=== PATIENT | female | born 1985 | race Caucasian/White ===

== ENCOUNTER 2018-07-14 07:13 | Outpatient (CLI) | payer OTHER, SELFPAY ==
[2018-07-14 08:11] LABS: HCT 39.2 % (36.0-46.0); HGB 12.9 g/dL (12.0-15.5); Mean Corp. HGB Concentration 32.9 g/dL (32.0-36.0); Mean Corpuscular Hemoglobin 29.5 pg (27.0-33.0); Mean Corpuscular Volume 89.5 fL (80-95); Mean Platelet Volume 10.7 fL (8.0-11.0); Platelet Count 293 x1000/uL (130-400); RBC 4.38 m/cumm (4.00-5.20); RBC Distribution Width 15.5 % (11.7-14.6); White Blood Cell Count 6.39 k/cumm (4.4-10.8)
== END 2018-07-14 07:33 ==
PROVIDERS: PCP Nurse Practitioner Family; Visit Provider Nurse Practitioner Family
DX: D64.9 Anemia, unspecified (principal)
CPT/HCPCS: 36415; 85027

== ENCOUNTER 2020-04-08 07:57 | Outpatient (CLI) | payer OTHER, SELFPAY | END 2020-04-08 08:17 | PROVIDERS: PCP Nurse Practitioner Family; Visit Provider Family Medicine | DX: Z11.59 Encounter for screening for other viral diseases (principal); Z71.84 Encounter for health counseling related to travel | CPT/HCPCS: U0003 ==

== ENCOUNTER 2020-04-12 11:40 | Outpatient (CLI) | payer OTHER, SELFPAY ==
[2020-04-13 11:52] LABS: COVID-19 RT-PCR UVMMC Result Negative (Negative)
== END 2020-04-12 12:00 ==
PROVIDERS: PCP Nurse Practitioner Family; Visit Provider Family Medicine
DX: Z11.59 Encounter for screening for other viral diseases (principal)
CPT/HCPCS: U0003

== ENCOUNTER 2020-04-25 16:22 | Outpatient (REF) | payer OTHER, SELFPAY | END 2020-04-25 16:42 | LOC: LBN 16:22 | PROVIDERS: PCP Nurse Practitioner Family; Visit Provider Nurse Practitioner Adult Health | DX: R30.0 Dysuria (principal) | CPT/HCPCS: 87077; 87086; 87186 ==

== ENCOUNTER 2020-07-18 13:41 | Outpatient (REF) | payer OTHER, SELFPAY ==
--- NOTE | 2020-07-18 13:30 | PAPFT_PTH ---
PATIENT: ANG IGNACIO LOC: [facility] U#:[id number] AGE/SX: 34/F ROOM: RE07/18/[address]: Amparo Flores DO : 1985 BED: DIS: 07/18/2020 SPEC #: [id number] RECD: 07/18/20 18:36 STATUS: RANDA REQ #: [id number] KIMBERLI: 07/18/20 13:[address]: Amparo Flores DEPT: [facility] Cytology RECD BY: Isabela Galvan ENTERED: 07/18/20 18:37 SP TYPE: PAPFT OTHR DR: Fernanda De La Rosa APRN Tissues: 1 - CX/ENDOCX FOR PAP SMEARS Procedures: PAP THIN PREP/[facility] Screening HPV DNA PROBE Comments: [id number] (CHLAMYDIA/GC)
[2020-07-20 15:40] LABS: Chlamydia Result Negative (Negative); GC Result Negative (Negative)
== END 2020-07-18 14:01 ==
LOC: LBN 13:41
PROVIDERS: PCP Nurse Practitioner Family; Visit Provider Obstetrics & Gynecology
DX: Z12.4 Encounter for screening for malignant neoplasm of cervix (principal); Z11.3 Encounter for screening for infections with a predominantly sexual mode of transmission; Z11.51 Encounter for screening for human papillomavirus (HPV)
CPT/HCPCS: 87491; 87591; 88142; 87624

== ENCOUNTER 2020-07-20 02:07 | Outpatient (CLI) | payer OTHER, SELFPAY ==
[2020-07-21 09:51] LABS: HIV-1/2 Ag & Ab Screen Negative (Negative)
[2020-07-21 10:04] LABS: Rubella IgG Ab (UVM) Positive (See Note)
[2020-07-21 10:14] LABS: Syphilis Serology (RPR) Negative (Negative)
[2020-07-22 11:05] LABS: CMV IgG Antibody Negative (See Note)
[2020-07-22 12:44] LABS: Hepatitis Be Antigen Negative (Negative)
== END 2020-07-20 02:27 ==
PROVIDERS: PCP Nurse Practitioner Family; Visit Provider Obstetrics & Gynecology
DX: Z31.69 Encounter for other general counseling and advice on procreation (principal)
CPT/HCPCS: 36415; 81329; 87389; 81220; 86592; 86644; 86762; 87350

== ENCOUNTER 2020-08-19 01:48 | Outpatient (CLI) | payer OTHER, SELFPAY ==
[2020-08-26 01:44] LABS: Result Summary NEGATIVE; Specimen WB Whole Blood
[2020-08-29 03:09] LABS: Specimen WB Whole Blood
== END 2020-08-19 02:08 ==
PROVIDERS: PCP Nurse Practitioner Family; Visit Provider Obstetrics & Gynecology
DX: Z31.69 Encounter for other general counseling and advice on procreation (principal)
CPT/HCPCS: 36415; 81329; 81220

== ENCOUNTER 2021-02-13 03:08 | Outpatient (CLI) | payer OTHER, SELFPAY ==
[2021-02-14 17:57] LABS: COVID-19 RT-PCR UVMMC Result Negative (Negative)
== END 2021-02-13 03:09 | disposition home or self-care (01) ==
LOC: LBO 03:08
PROVIDERS: PCP Nurse Practitioner Family; Visit Provider Nurse Practitioner Family
DX: Z20.822 Contact with and (suspected) exposure to COVID-19 (principal); Z01.818 Encounter for other preprocedural examination
CPT/HCPCS: U0003